=== PATIENT | female | born 1965 | race Two or more races ===

== ENCOUNTER 2023-01-06 00:15 | Emergency (ER) | payer MEDICAID, SELFPAY ==
[2023-01-06 00:17] VITALS: BP 135/80; BP 150/80; PULSE 123; PULSE 93; TEMP 36.8; O2SAT 94; BMI 33.8
[2023-01-06 02:31] VITALS: BP 120/63; PULSE 85; RESP 18; TEMP 36.3; O2SAT 99
--- NOTE | 2023-01-06 02:32 | MHC.EDTECH ---
This tech assumed care of patient, Patient has a Lac to right hand, Patient had a dressing from EMS still in place. Dressing was very tight and when removed patient states that her hand is swollen there was thorne on her hand and wrist from wrapping.This tech made AKASH Duncan aware. This tech cleaned patients lac with normal saline and placed a telfa with a loose gauze wrap bleeding is controlled,and is awaiting a provider. Vitals were obtained.
[2023-01-06 05:54] VITALS: BP 107/59; PULSE 85; RESP 16; TEMP 36.8; O2SAT 94
--- NOTE | 2023-01-06 06:46 | ED_ITS ---
HPI - General Adult General Chief complaint: Wound/Laceration Stated complaint: Hand lac Time Seen by Provider: 01/06/23 06:30 Source: patient, family, EMS and RN notes reviewed Mode of arrival: EMS Limitations: no limitations History of Present Illness HPI narrative: Patient is a 58-year-old left hand dominant female with history of asthma and high cholesterol presenting to ED with laceration to dorsal aspect of right hand. Patient reports drinking two margaritas last night, then brought out a bag of trash and when she returned to the house, noted bleeding from a laceration on her right hand. She is unsure of date of last tetanus vaccine. Denies any numbness or tingling to hand or fingers. complaint: right hand laceration Onset (ago): hour(s) Location: right and upper extremity Severity scale (1-10): 8 Quality: burning Pain Consistency: constant Relieving factors: rest Exacerbating factors: movement Associated symptoms: denies other symptoms Treatments prior to arrival: none Related Data Previous Rx's Medication Instructions Recorded doxycycline hyclate 100 mg capsule 100 mg PO BID #14 caps 01/06/23 Allergies Allergy/AdvReac Type Severity Reaction Status Date / Time Penicillins Allergy Unknown RASH Unverified 04/18/20 17:32 Review of Systems Review of Systems: As per HPI. Yes all other systems are reviewed and are negative Constitutional: Constitutional: Reports as per HPI [facility] Social History Social History Advance Directives: No Advance Directives Information Provided: No Physical Exam ED Vital Signs: Vital Signs - 24 hr 01/06/23 00:17 01/06/23 02:31 01/06/23 05:54 Temperature 98.2 F 97.4 F 98.3 F Pulse Rate 93 85 85 Respiratory Rate 18 16 Blood Pressure 135/80 120/63 107/59 L Pulse Oximetry 94 99 94 Oxygen Delivery Method Room Air Room Air Room Air BMI result Body Mass Index 33.8 Vital signs have been reviewed and appear to be correct. Blood pressure normal. Heart rate normal. Respiratory rate normal. Temperature normal. Oxygen saturation normal. Const General: cooperative, healthy appearing and no acute distress Orientation/consciousness: oriented to person, oriented to place, oriented to time and patient oriented x3 Limitations: no limitations HENMT Head: Yes normocephalic and Yes atraumatic Ears: external ears normal General nose exam: Normal external nose present Face and sinus: Yes face symmetric Mouth: oropharynx normal and moist mucous membranes Throat: Yes uvula midline Eyes Pupils: Equal, round and reactive pupils present Neck Neck: Yes normal visual inspection and Yes supple Resp Effort & Inspection: normal respiratory effort and able to speak in complete sentences Auscultation: clear to auscultation bilaterally Cardio Rate: regular rate Rhythm: regular rhythm Heart sounds: S1 normal heart sound present and S2 normal heart sound present GI Palpation (GI): Soft to palpation and nontender Auscultation: normoactive bowel sounds Skin General skin exam: elasticity normal and turgor normal Neuro General: oriented to person, oriented to place, oriented to time, patient oriented x3, moves all extremities, no focal motor deficits and CN's II-XI intact bilaterally Cranial nerves: Yes Equal, round and reactive pupils present Cognition (Neuro): normal cognition Extrem General: Yes full ROM, Yes no pedal edema and Yes no calf tenderness Right upper extremity: Extremity exam: right hand Details: normal capillary refill, neuromotor exam normal, neurosensory exam normal, tendon exam normal and laceration dorsal hand ulnar aspect proximal Psych Mental Status: mental status grossly normal Affect: normal affect Thought process: Normal thought process present Medications Administered Discontinued Medications Generic Name Dose Route Start Last Admin Trade Name Freq PRN Reason Stop Dose Admin Diphtheria/Tetanus/Acell Pertussis 0.5 ml 01/06/23 06:46 01/06/23 06:50 Diphth,Pertus(Acell),Tet Adult 0.5 Ml Syringe IM 01/06/23 06:47 0.5 ml .ONCE ONE Administration Procedures Laceration Laceration 1: Site: hand Side (If applicable): right Size (cm): 5 Description: linear Depth: simple, single layer Local Anesthetic: lidocaine 1% Amount of anesthesia used (mL): 3 Pre-repair: wound explored and irrigated extensively Skin layer closed with: other (prolene) Size (cm): 5-0 Number of sutures: 10 Technique: simple, interrupted Medical Decision Making Medical Decision Making MDM Narrative: Patient is a 58-year-old left hand dominant female with history of asthma and high cholesterol presenting to ED with laceration to dorsal aspect of right hand. On exam patient is awake, A+Ox3, ~5cm laceration to dorsal aspect of right hand on ulnar side without active bleeding. Differential includes laceration, tendon injury, infection. Wound repaired as per procedure note, patient tolerated procedure well. Tetanus updated today. Prescribed doxycycli ne as patient is unsure of what type of item in her trash bag caused the laceration and she is allergic to PCN. Instructed patient to changed dressing daily and assess for signs of infection. Sutures to be removed in 7-10 days. Instructed patient to avoid submerging hand in water until wound is full healed. Excuse note provided for work. Return precautions discussed at bedside. Differential Diagnosis Differential Diagnoses: The differential diagnosis associated with the presentation includes As above. External Record Review External record reviewed: Inpatient record, Office record and Outpatient record Prescription Management I considered prescription management with: Antibiotic Discharge Plan Discharge Clinical Impression: Laceration of hand, right Patient Disposition: Home, Self-Care Instructions: Care For Your Stitches (DC), Laceration (DC) Additional Instructions: You have been evaluated in the emergency department today for a laceration to your hand. Your laceration was repaired in the emergency department with sutures. Please keep the area surrounding the laceration clean and dry and keep dressing in place for the next 24 hours. After that please change the dressing and assess the wound daily. You are being prescribed doxycycline with is an antibiotic. Please complete the full course as prescribed. Keep the area out of direct sunlight for the next 6 months to help prevent scarring. Do not submerge your hand in water until wound has fully healed. You should have the sutures removed in 7-10 days. If you develop fever, redness, swelling at the site of your laceration, or thick yellow drainage please come back to the ER for a wound check. Prescriptions: New doxycycline hyclate 100 mg capsule 100 mg PO BID Qty: 14 0RF Stand Alone Forms: Work/School Release
[2023-01-06] MEDS: Diphth,Pertus(ACell),Tet Adult 0.5 ML SYRINGE IM (06:50)
== END 2023-01-06 08:26 | disposition home or self-care (01) ==
PROVIDERS: Emergency Provider Internal Medicine
DX: S61.411A Laceration without foreign body of right hand, initial encounter (principal); W26.9XXA Contact with unspecified sharp object(s), initial encounter; Y93.E9 Activity, other interior property and clothing maintenance; Y92.039 Unspecified place in apartment as the place of occurrence of the external cause; Y99.9 Unspecified external cause status
CPT/HCPCS: 12002; 90471; 90715; 99283; 99284